=== PATIENT | male | born 1970 | race Caucasian/White ===

== ENCOUNTER 2016-10-12 13:09 | Emergency (ER) | payer MEDICARE ==
[2016-10-12 13:44] LABS: BASO % 0.3 % (0.2-1.2); EOS # 0.2 10_X3_uL (0.0-0.5); EOS % 1.5 % (0.8-7.0); GRAN # 6.3 10_X3_uL (1.8-5.4); GRAN % 49.1 % (34.0-67.9); HEMATOCRIT 46.8 % (40-51); HEMOGLOBIN 16.5 g/dL (13.7-17.5); LYMPH # 5.8 10_X3_uL (1.3-3.6); LYMPH % 44.9 % (21.8-53.1); MEAN CORPUSCULAR HEMOGLOBIN 35.2 pg (27.0-33.0); MEAN CORPUSCULAR HGB CONC 35.3 g/dL (32.0-36.0); MEAN CORPUSCULAR VOLUME 99.8 fL (79-92); MEAN PLATELET VOLUME 8.9 fl (7.5-11.5); MONO # 0.5 10_X3_uL (0.3-0.8); MONO % 4.2 % (5.3-12.2); PLATELET COUNT 263 x10_3/uL (163-337); RED BLOOD COUNT 4.69 x10_6/uL (4.6-6.1); RED CELL DISTRIBUTION WIDTH 13.2 % (11.6-14.4); WHITE BLOOD COUNT 12.9 x10_3/uL (4.2-9.1)
[2016-10-12 14:06] LABS: ALBUMIN 4.9 gm/dL (3.4-5.0); ALKALINE PHOSPHATASE 77 U/L (50-136); ALT/SGPT 43 U/L (7.53-40.17); AST/SGOT 59 U/L (6.66-35.34); BILIRUBIN,TOTAL 0.31 mg/dL (0.0-1.0); BLOOD UREA NITROGEN 6 mg/dL (7-18); CALCIUM 8.9 mg/dL (8.7-10.7); CARBON DIOXIDE 23 mmol/L (21-32); CREATINE KINASE 304 U/L (35-232); CREATININE 0.6 mg/dL (0.6-1.3); GLUCOSE,RANDOM 89 mg/dL (70-99); POTASSIUM 4.1 mmol/L (3.5-5.1); SODIUM 140 mmol/L (136-145); TOTAL PROTEIN 8.3 gm/dL (6.4-8.2)
== END 2016-10-12 15:08 | disposition home or self-care (01) ==
LOC: ER 13:09
PROVIDERS: Emergency Medicine
DX: R07.89 Other chest pain (principal); I10 Essential (primary) hypertension; J44.9 Chronic obstructive pulmonary disease, unspecified; Z98.890 Other specified postprocedural states; F17.210 Nicotine dependence, cigarettes, uncomplicated
CPT/HCPCS: 36415; 71020; 80053; 82550; 82553; 85025; 93005; 99070; 99285-25